=== PATIENT | female | born 1990 | race Caucasian/White ===

== ENCOUNTER 2017-08-04 16:08 | Emergency (ER) | payer SELFPAY ==
[~2017-08-04] VITALS: Wt 68.0 kg
== END 2017-08-04 20:00 | disposition left against medical advice (07) ==
LOC: E/R 16:08
DX: Z53.21 Procedure and treatment not carried out due to patient leaving prior to being seen by health care provider (principal)

== ENCOUNTER 2018-10-08 18:45 | Emergency (ER) | END 2018-10-08 20:55 ==